=== PATIENT | female | born 1970 | race Caucasian/White ===

== ENCOUNTER → 2023-07-30 06:06 | Outpatient (REF) | payer BC, SELFPAY | LOC: EMG 06:06 | PROVIDERS: ATTENDING PHYSICIAN Family Medicine | DX: R20.2 Paresthesia of skin (principal); R20.0 Anesthesia of skin | CPT/HCPCS: 95886; 95911 ==

== ENCOUNTER 2024-02-05 06:20 | Day surgery (SDC) | payer BC, SELFPAY | END 2024-02-05 13:06 | disposition home or self-care (01) | LOC: GI 06:20 | PROVIDERS: ATTENDING PHYSICIAN Internal Medicine Gastroenterology | DX: Z12.11 Encounter for screening for malignant neoplasm of colon (principal); K57.30 Diverticulosis of large intestine without perforation or abscess without bleeding; K64.0 First degree hemorrhoids | CPT/HCPCS: G0121 ==